=== PATIENT | male | born 2005 | race African-American/Black ===

== ENCOUNTER 2023-05-06 17:49 | Emergency (ER) | payer MEDICAID, SELFPAY | END 2023-05-06 18:24 | disposition home or self-care (01) | LOC: NAV ERS 17:49 | DX: B30.9 Viral conjunctivitis, unspecified (principal) | CPT/HCPCS: 99283 ==

== ENCOUNTER 2025-01-30 21:41 | Emergency (ER) | payer OTHER, SELFPAY ==
[2025-01-30] MEDS ORDERED: Acetaminophen 500 MG TAB ONE (22:06)
== END 2025-01-30 22:55 | disposition home or self-care (01) ==
LOC: NAV ERS 21:41
DX: B34.9 Viral infection, unspecified (principal); R29.700 NIHSS score 0
CPT/HCPCS: 87428; 99284